=== PATIENT | male | born 1955 | race Caucasian/White ===

== ENCOUNTER → 2021-03-06 | Outpatient (CLI) | payer OTHER ==
--- NOTE | 2021-03-06 11:15 | KCIC ---
Examination: MRI of the left mid foot without contrast HISTORY: History of left foot pain, fall COMPARISON: None available TECHNIQUE: Multiplanar, multisequence MR imaging of the left mid foot was performed without contrast FINDINGS: The alignment of the tarsal bones grossly appears unremarkable. There is mild increased T2 signal identified in the lateral cuneiform and lateral aspect of the cuboid bone could be trabecular edema. There is increased signal identified in the Lisfranc ligament region could be secondary to par tial tear or sprain. There is moderate increased T2 signal/edema in the lateral aspect of the midfoot . Fatty identified in the sinus tarsi. There is increased T2 signal identified in the anterior talofibu lar ligament likely tear. The anterior extensor compartment tendons, flexor tendons, peroneal tendons grossly appears intact. The deltoid ligament appears intact. There is a multiloculated cystic struct ure identified posterior to the posterior aspect of the talus measuring 2.2 cm in transverse dimensio n likely ganglion cyst. Moderate degenerative changes ankle joint, tarsometatarsal joints. IMPRESSION: 1. Increased signal identified in the Lisfranc ligament region could be secondary to partial tear or sprain. 2.Increased T2 signal identified in the anterior talofibular ligament likely tear. 3.Mild increased T2 signal identified in the lateral cuneiform and lateral aspect of the cuboid bone could be trabecular edema.Moderate increased T2 signal/edema identified in the soft tissue lateral as pect of the midfoot, nonspecific. 4.Moderate degenerative changes ankle joint, tarsometatarsal joints. 5.A 2.2 cm multiloculated cystic structure identified posterior to the posterior aspect of the talus measuring 2.2 cm in transverse dimension likely ganglion cyst. Electronically signed by: Olivier Fong MD (03/06/2021 11:12 AM) [place] [id number]
== END ==
LOC: KCIC MRI 07:56
PROVIDERS: ATTEND Podiatrist
DX: S93.326A Dislocation of tarsometatarsal joint of unspecified foot, initial encounter (principal); M19.072 Primary osteoarthritis, left ankle and foot; M85.672 Other cyst of bone, left ankle and foot; W19.XXXA Unspecified fall, initial encounter; Y93.89 Activity, other specified; Y92.89 Other specified places as the place of occurrence of the external cause; Y99.8 Other external cause status
CPT/HCPCS: 73718

== ENCOUNTER 2021-03-08 05:56 | Day surgery (SDC) | payer OTHER ==
[~2021-03-08] VITALS: Ht 180.3 cm; Wt 106.0 kg
[2021-03-08] MEDS ORDERED: fentaNYL PF VIAL 100 MCG/2 ML VIAL IVP PRN ×2 (06:00)
[2021-03-08] MEDS ORDERED: MORPHINE SULFATE 2 MG/ML INJ. IVP PRN (06:00)
[2021-03-08] MEDS ORDERED: HYDROmorphone 2 MG/ML VIAL IVP PRN (06:00)
[2021-03-08] MEDS ORDERED: IV RINGERS,LACTATED 1000ML 1,000 ML IV SCH (06:00)
[2021-03-08] MEDS ORDERED: PROCHLORPERAZINE 10 MG/2 ML VIAL. IVP PRN (06:00)
[2021-03-08 06:24] VITALS: BP 157/88
[2021-03-08] MEDS ORDERED: ROPIVacaine 0.5% PF 20 ML VIAL. ONE (06:43)
[2021-03-08] MEDS ORDERED: MIDAZOLAM HCL/PF 2 MG/2 ML VIAL. ONE (06:43)
[2021-03-08] MEDS ORDERED: SUCCINYLCHOLINE 200 MG/10 ML VIAL. ONE (07:00)
[2021-03-08] MEDS ORDERED: PROPOFOL 10 MG/ML (20ML) VIAL. IV ONE ×2 (07:00→09:04)
[2021-03-08] MEDS ORDERED: fentaNYL PF VIAL 100 MCG/2 ML VIAL ONE ×2 (07:00→07:23)
[2021-03-08] MEDS ORDERED: LIDOCAINE 2% PF 5 ML VIAL. ONE (07:00)
[2021-03-08] MEDS ORDERED: BUPIVACAINE MPF 0.25% 30 ML VIAL. ONE ×2 (07:03→08:04)
--- NOTE | 2021-03-08 07:08 | PDOC1 ---
History and Physical Date of Service: DOS: DATE: 03/08/21 TIME: 07:06 Chief Complaint: Chief Complain: left foot pain History of Present Illness: HPI: Patient is 66-year-old white male presenting today for for surgery with Dr. Centeno. Undergoing a left foot surgery. Discussed with patient he is on no medications at home. Denies any history of stroke heart problems kidney problems diabetes. Here for surgery. Past Medical/Surgical History: PMH/PSH: Denies Allergies: Allergies: Coded Allergies: amoxicillin (Verified Allergy, Intermediate, itchy rash, 03/08/21) Family History: Family History: Reviewed with patient no known Social History: Social History: Denies alcohol tobacco drug use Current Medications: Current Medications Current Medications Fentanyl Citrate (Fentanyl 2ml Vial) 25 mcg PRN Q5MIN PRN IVP MILD PAIN 1-3; Start 03/08/21 at 06:00; Stop 03/09/21 at 05:59 Fentanyl Citrate (Fentanyl 2ml Vial) 50 mcg PRN Q5MIN PRN IVP MODERATE PAIN 4- 6; Start 03/08/21 at 06:00; Stop 03/09/21 at 05:59 Morphine Sulfate (Morphine Sulfate) 1 mg PRN Q10MIN PRN IVP SEVERE PAIN 7-10; Start 03/08/21 at 06:00; Stop 03/09/21 at 05:59 Ringer's Solution 1,000 ml @ 30 mls/hr Q24H IV Last administered on 03/08/21at 06:31; Start 03/08/21 at 06:00; Stop 03/08/21 at 17:59 Hydromorphone HCl (Dilaudid) 0.5 mg PRN Q10MIN PRN IVP SEVERE PAIN 7-10, 2nd CHOICE; Start 03/08/21 at 06:00; Stop 03/09/21 at 05:59 Prochlorperazine Edisylate (Compazine) 5 mg PACU PRN PRN IVP NAUSEA, MRX1; S tart 03/08/21 at 06:00; Stop 03/09/21 at 05:59 Cefazolin Sodium/ Dextrose 50 ml @ 100 mls/hr 1X PREOP PRN IV PRIOR TO PROCEDURE; Start 03/08/21 at 06:00; Stop 03/08/21 at 18:00 Midazolam HCl (Versed) 2 mg STK-MED ONCE .ROUTE ; Start 03/08/21 at 06:43; Stop 03/08/21 at 06:43; Status DC Ropivacaine (Naropin 0.5%) 20 ml STK-MED ONCE .ROUTE ; Start 03/08/21 at 06:43; Stop 03/08/21 at 06:43; Status DC Propofol (Diprivan) 200 mg STK-MED ONCE IV ; Start 03/08/21 at 07:00; Stop 03/08/21 at 07:00; Status DC Lidocaine HCl (Lidocaine Pf 2% Vial) 5 ml STK-MED ONCE .ROUTE ; Start 03/08/21 at 07:00; Stop 03/08/21 at 07:00; Status DC Succinylcholine Chloride (Anectine) 200 mg STK-MED ONCE .ROUTE ; Start 03/08/21 at 07:00; Stop 03/08/21 at 07:00; Status DC Fentanyl Citrate (Fentanyl 2ml Vial) 100 mcg STK-MED ONCE .ROUTE ; Start 03/08/21 at 07:00; Stop 03/08/21 at 07:01; Status DC Bupivacaine HCl (Sensorcaine Mpf 0.25%) 30 ml STK-MED ONCE .ROUTE ; Start 03/08/21 at 07:03; Stop 03/08/21 at 07:03; Status DC Active Scripts Active Reported No Known Medications Prior To Admisstion (Info) Each 1 Each 1X ROS: Review of Systems Review of System Unless noted in HPI 14 point review of systems was negative Physical Exam: Vital Signs: Vital Signs Date Time Temp Pulse Resp B/P (MAP) Pulse Ox O2 Delivery O2 Flow Rate FiO2 03/08/21 06:24 97.2 69 20 96 97.2 03/08/21 06:19 157/88 Room Air Physcial Exam: GEN: No apparent distress. Alert and oriented HEENT: Normal cephalic, atraumatic, external auditory canals are patent EYES: Extraocular muscles are intact, MUSCULOSKELETAL: Well developed , well nourished, good range of motion ENDOCRINE: No thyromegaly was palpated LYMPHATICS: No cervical chain or axillary nodes were noted HEMATOPOIETIC: No bruising NECK: Supple, no JVD, no thyromegaly was noted LUNGS: No apparent respiratory distress HEART: Regular rate ABDOMEN: Soft, nontender. EXTREMITIES: Without clubbing, cyanosis, or edema. Pedal pulses intact. NEUROLOGIC: Normal speech and tone. A&O x 3, moves all extremities, no obvious focal deficits PSYCHIATRIC: Normal affect, normal mood. Stable SKIN: No ulcerations or rashes, good skin turgor, no jaundice VASCULAR: Good capillary refill, neurovascular bundle appears to be intact Assessment/Plan Assessment/Plan Patient presenting today for left foot surgery. Cleared for surgery from h ospitalist perspective. Valerie is 0. Justifications for Admission Other Justification HIRAL PANTOJA MD Mar 08, 2021 07:08
[2021-03-08] MEDS ORDERED: PHENYLEPHRINE 10 MG/ML VIAL. ONE (07:09)
[2021-03-08] MEDS ORDERED: ROCURONIUM 50 MG/5 ML VIAL. ONE (07:40)
[2021-03-08] MEDS ORDERED: KETAMINE HCL IN NACL, ISO-OSM 50 MG/5 ML SYRINGE ONE (07:49)
[2021-03-08] MEDS ORDERED: HYDROmorphone 2 MG/ML VIAL ONE ×2 (09:05→09:39)
[2021-03-08] MEDS ORDERED: NEOSTIGMINE METHYLSULFATE 5 MG/5 ML SYRINGE. ONE (09:24)
[2021-03-08] MEDS ORDERED: GLYCOPYRROLATE 1 MG/5 ML VIAL. ONE (09:24)
[2021-03-08] MEDS ORDERED: MORPHINE SULFATE 2 MG/ML INJ. ONE (09:39)
[2021-03-08] MEDS ORDERED: PROCHLORPERAZINE 10 MG/2 ML VIAL. ONE (09:39)
--- NOTE | 2021-03-08 09:54 | PDOC4 ---
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 Upon soft tissue incision, viscous fluid was noted. Otherwise, the dorsal extensor tendons were spared. Stress test remarked Lisfranc joint instability between the second metatarsal and first cuneiform, intercuneiform instability between the first and second cuneiforms. Otherwise, there was no osseous fragment, interruption to the tarsometatarsal joint 1 through 3. There was no sagittal plane instability at the second ray upon manual stress. Upon swivel lock placement and stress at the medial cuneiform, there was no i nstability or remarks of pseudojoint violation at the bipartite. After Lisfranc joint and intercuneiform joint stabilization, stress test with a Clarinda was insignificant for joint gapping or instability. Clinical palpation was insignificant for implant prominence either medially or dorsally. Complications: None Operative Note: Under conscious sedation, patient was brought into the operating room and placed on the operating table in a supine position. A formal timeout was performed to confirm patient's identity, procedure and procedure site. Following preoperative IV antibiotic, and general anesthesia, a well-padded left high ankle tourniquet was placed. The left lower extremity was scrubbed, prepped and draped using aseptic techniques. The left lower extremity was exsanguinated and the tourniquet was inflated to 250 mmHg. First of the attention was directed to the second ray. Using intraoperative x- ray guidance, the lateral flare of the first metatarsal base, Lisfranc joint, medial midpoint of the first cuneiform, tibialis anterior tendon insertion, medial bipartite cuneiform were outlined on skin. Then the incision was made over the central second metatarsal and cuneiform, approximately 3 to 4 cm. The incision was carried deep with the combination of sharp and blunt dissection to protect and retract all the neurovascular bundles. At this time, we visualized a well encapsulated soft tissue mass overlying the dorsal second cuneiform extending into the navicular cuneiform joint. With careful dissection using a 15 blade, the soft tissue mass was removed in toto and sent for pathology. No a dditional stocks, violation of the dorsal extensor tendons were noted. The incision was carried deep to the periosteal layer where a periosteal elevator was used to expose and visualize the lateral flare of the second metatarsal base, second TMT, Lisfranc joint between the second metatarsal base and the first cuneiform. The invaginated soft tissue was also freed from the interspace. For stress test between the second metatarsal and first cuneiform remarked instability and mild gapping. The site was irrigated with copious saline solution. Then a reduction clamp was used to reduce the gap between the second metatarsal and first cuneiform. Adequate reduction was confirmed with intraoperative x-ray. Then a provisional K wire was used in a retrograde fashion from the lateral base of the second metatarsal to the medial central first cuneiform. Then a suture button was placed over the K wire trajectory while the Lisfranc joint remained reduced with the clamp. Then a 3.5 mm swivel lock was used to stabilize the Fibertape at the medial central first cuneiform through a small stab incision with care to retract the tibialis anterior tendon out of the surgical sites. Care was taken to ensure the placement of the swivel lock was not in the bipartite. After the the swivel lock was secured in a proper tension and position, the clamp was released. Adequate reduction of the joint was noted and maintained. Upon stress, there was no instability across the Lisfranc joint. Further TMT 1 through 3 transverse plane stress test was negative. Sagittal stress test 1 through 3 TMTs was also insignificant. A Clarinda was used to stress the first and second cuneiform which remarked instability. Then the decision was made to stabilize the intercuneiform joint by redirecting the medial Fibertape over to the dorsal second cuneiform through a supraperiosteal tunnel with a mosquito clamp. Care was taken to protect and avoid trapping the dorsal neurovascular bundle. Then a 3.5 swivel lock was placed over the central dorsal second cuneiform with intraoperative x-ray guidance. Proper stabilization across the first and second cuneiform was noted. Then the surgical sites was irrigated with copious saline solution. The surgical sites were closed in layers with 3-0 Vicryl, 4-0 Monocryl and 4-0 nylon. The surgical site was anesthetized with 10 cc of 0.25%Marcaine plain. The surgical sites were then dressed with Betadine soaked Adaptic, 4 x 4 gauze. The right lower extremity was immobilized in a well-padded Lieberman compression splint with ankle held in near 90 degrees. Tourniquet was let down at this time and adequate digital perfusion was noted. Patient tolerated the procedure and anesthesia well with neurovascular status intact. Patient was then transferred to PACU for continuous recovery. Pending right foot x-ray. RAYMOND ALFREDO DPM Mar 08, 2021 09:54
[2021-03-08] MEDS ORDERED: ACETAMINOPHEN 325 MG TABLET. PO ONE (10:00)
[2021-03-08] MEDS ORDERED: oxyCODONE/APAP 5/325 1 TAB TABLET PO ONE (10:00)
[2021-03-08] MEDS ORDERED: GABAPENTIN 100 MG CAPSULE. PO ONE (10:00)
[2021-03-08] MEDS ORDERED: HYDR-2761 PO (10:22)
[2021-03-08] MEDS ORDERED: GABA-585 PO (10:22)
[2021-03-08] MEDS ORDERED: IBUP-1007 PO (10:23)
[2021-03-08] MEDS ORDERED: ACET500T68 PO (10:23)
[2021-03-08] MEDS ORDERED: ASPI-630 PO (10:24)
[2021-03-08 10:50] VITALS: BP 156/85
--- NOTE | 2021-03-08 12:42 | RAD ---
EXAM: 3 views of the left foot DATE: 03/08/2021 9:59 AM INDICATION: POST OP COMPARISON: No Prior FINDINGS/ IMPRESSION: Overlying cast obscures fine bony detail. Calcaneal enthesophyte is seen at the plantar margin. Foref oot soft tissue swelling is seen. Postsurgical changes are seen about the midfoot with a tendon ancho r. No acute fracture or dislocation. Midfoot degenerative changes are seen. No definite tarsometatars al offset. Chronic changes within the medial cuneiforms. Electronically signed by: Bill Simmons MD (03/08/2021 12:39 PM) [id number]
== END 2021-03-08 11:02 | disposition home or self-care (01) ==
LOC: SURG 05:56 → EDUNIT# 07:30 → SURG 11:02
PROVIDERS: ATTEND Podiatrist
DX: M25.372 Other instability, left ankle (principal); M25.572 Pain in left ankle and joints of left foot; Z79.82 Long term (current) use of aspirin; Z79.899 Other long term (current) drug therapy; Z98.890 Other specified postprocedural states; Z88.1 Allergy status to other antibiotic agents; Z72.89 Other problems related to lifestyle
CPT/HCPCS: 28555; 28615; 73630; A4930; A6223; A6253; A6402; A6449; A6450; C1713; J0330; J0690; J1170; J2250; J2370; J2704; J2710; J2795; J3010; J3490; A6455; J0780; J2270